=== PATIENT | male | born 1955 | race Caucasian/White ===

== ENCOUNTER 2021-11-20 09:25 | Emergency (ER) | payer OTHER, MEDICARE, SELFPAY ==
--- NOTE | ~2021-11-20 | CT_ITS ---
EXAMINATION: CT brain wo con INDICATION: Head injury COMPARISON: None TECHNIQUE: Standard unenhanced head CT. The dose-length product (DLP) was 605.33 mGy-cm. The mA was a djusted according to patient size. Iterative reconstruction technique was employed. FINDINGS: There is no intracranial hemorrhage, acute infarction, or abnormal mass lesion. The ventric les are normal. There is no abnormal mass effect or midline shift. The newton-white matter differentiat ion is normal. The basal cisterns are patent. The orbits are normal. There is mild mucosal thickening of the paranasal sinuses. IMPRESSION: 1. No acute intracranial abnormality. 2. Sinus disease. Reviewed, dictated and finalized at location B.
--- NOTE | ~2021-11-20 | CT_ITS ---
EXAMINATION: CT cervical spine wo con DATE: 11/20/2021 10:31 INDICATION: Head injury TECHNIQUE: Computed tomography (CT) of the cervical spine was performed without intravenous contrast. The dose-length product (DLP) was 469.23 mGy-cm. Automated exposure control and iterative reconstruc tion technique were employed. COMPARISON: None FINDINGS: There is no fracture, dislocation, or subluxation. The vertebral body heights are maintaine d. There is moderate loss of intervertebral disc space height at C3-4. The odontoid is intact. The pr evertebral soft tissues are normal. There is mild uncovertebral joint osteoarthritis at C3-4. IMPRESSION: 1. Mild cervical spondylosis without acute findings. Reviewed, dictated and finalized at location B.
[2021-11-20 09:14] VITALS: BP 156/102; PULSE 86; RESP 16; TEMP 36.2; O2SAT 98
--- NOTE | 2021-11-20 09:54 | ED.FALL ---
HPI - Fall General Chief Complaint: Fall Stated Complaint: glf - hit back of head, no loc, dizziness Time Seen by Provider: 11/20/21 09:34 Source: patient Mode of arrival: ambulatory Limitations: no limitations History of Present Illness HPI Narrative: Patient is a 66 y/o male who presents to the ED with c/o a fall. Patient reports he slipped and fell in the rain just prior to arrival and fell backwards, hitting his posterior head against the ground. No LOC. No prodromal symptoms. He states he did not brace himself at all, however. No lacerations or wounds. He is starting to have a headache and some posterior neck pain and stiffness. No other injuries. No dizziness, lightheadedness, vision changes, nausea, vomiting, chest pain, trouble breathing. Patient takes an aspirin 81 mg daily. No other blood thinners. Related Data Allergies Allergy/AdvReac Type Severity Reaction Status Date / Time No Known Allergies Allergy Verified 11/20/21 10:44 Review of Systems Review of Systems: CONSTITUTIONAL: Denies fever, chills, or sweats. EYES: Denies visual changes. CARDIOVASCULAR: Denies chest pain. RESPIRATORY: Denies cough or dyspnea. GASTROINTESTINAL: Denies abdominal pain, nausea, vomiting. SKIN: Denies wounds or lacerations. MUSCULOSKELETAL: Reports posterior neck pain. Denies back pain. NEUROLOGIC: Reports headache, HI. Denies dizziness, LOC, lightheadedness, numbness, or weakness. All systems reviewed & are unremarkable except as noted in HPI and below PMFSH Past Medical History Medical History (Updated 11/20/21 @ 10:54 by Lorraine Otero PA-C) Arthritis GERD (gastroesophageal reflux disease) Hyperlipidemia Surgical History Surgical History (Updated 11/20/21 @ 10:22 by Lorraine Otero PA-C) H/O mitral valve repair Social History Social History (Updated 11/20/21 @ 10:22 by Lorraine Otero PA-C) Smoking status: Never smoker Exam Narrative: GENERAL: Well appearing, well-nourished, non-toxic, in no acute distress. HEAD: Normocephalic. Large contusion to posterior head over occipital bone, tender to palpation. EYES: PERRL/EOMI, conjunctivae clear bilaterally. NECK: Supple. No adenopathy, no masses. No midline cervical spinal tenderness. RESPIRATORY: Airway patent, respirations nonlabored. Clear to auscultation bilaterally, no rales, rhonchi, wheezing. CARDIOVASCULAR: Regular rate and rhythm without murmurs, rubs, or gallops. Radial pulses 2+ and equal bilaterally. ABDOMINAL: Soft, nontender, nondistended, no hepatosplenomegaly. Normoactive BS. MUSCULOSKELETAL: Moves all extremities. Strength/ROM intact without gross deformities or TTP. No midline thoracic or lumbar spinal tenderness. SKIN: Warm, dry, normal color. No rashes. No lacerations or wounds. No bruising noted to back. NEURO: A&O X3. Speech clear. Cranial nerves II-XII intact. Steady gait. No ataxic movements. PSYCHIATRIC: Appropriate mood and affect. Normal interaction. Course Vital Signs Vital signs: Vital Signs Temperature 97.2 F L 11/20/21 09:14 Pulse Rate 86 11/20/21 09:14 Respiratory Rate 16 11/20/21 09:14 Blood Pressure 156/102 H 11/20/21 09:14 Pulse Oximetry 98 11/20/21 09:14 Temperature 97.2 F L 11/20/21 09:14 Pulse Rate 78 11/20/21 11:02 Respiratory Rate 16 11/20/21 11:02 Blood Pressure 140/86 11/20/21 11:02 Pulse Oximetry 99 11/20/21 11:02 MDM - Fall MDM Narrative Medical decision making narrative: Patient presented to ED status post mechanical fall with head injury. No prodromal symptoms or LOC. VSS upon arrival. BP mildly elevated, likely due to pain. Patient with large contusion to occipital region but no lacerations or wounds that require repair. No other injuries. Patient neurologically intact on exam. No dizziness, lightheadedness, vision changes, confusion. At this time, due to sheer mechanical nature of fall, do not believe patient requires lab work. CT head and neck negative for acute findi
[2021-11-20] MEDS: ACETAMINOPHEN 500 MG TABLET 1000 MG PO (10:45)
[2021-11-20 11:02] VITALS: BP 140/86; PULSE 78; RESP 16; O2SAT 99
== END 2021-11-20 11:11 | disposition home or self-care (01) ==
PROVIDERS: Emergency Provider Emergency Medicine
DX: S00.03XA Contusion of scalp, initial encounter (principal); K21.9 Gastro-esophageal reflux disease without esophagitis; E78.5 Hyperlipidemia, unspecified; M19.90 Unspecified osteoarthritis, unspecified site; W01.0XXA Fall on same level from slipping, tripping and stumbling without subsequent striking against object, initial encounter; M47.812 Spondylosis without myelopathy or radiculopathy, cervical region; J32.9 Chronic sinusitis, unspecified
CPT/HCPCS: 70450; 72125; 99284; A9270